=== PATIENT | female | born 1970 | race Hispanic/Latino ===

== ENCOUNTER 2022-01-09 10:00 | Inpatient (IN) | payer BC ==
[~2022-01-09] VITALS: Ht 167.6 cm; Wt 136.4 kg
[2022-01-09 10:31] LABS: BASOPHILS % (AUTO) 1.4 % (0.0-5.0); EOSINOPHILS % (AUTO) 2.4 % (0.0-8.0); LYMPHOCYTES % (AUTO) 33.6 % (21.0-51.0); MEAN CORPUSCULAR HEMOGLOBIN 29.5 pg (27.0-33.0); MEAN CORPUSCULAR HGB CONC 31.2 g/dL (32.0-36.0); MEAN CORPUSCULAR VOLUME 94.5 fL (79-99); NEUTROPHILS % (AUTO) 54.4 % (40.0-77.0); PLATELET COUNT (AUTO) 201 K/uL (130-400); RED BLOOD CELL COUNT(AUTO) 4.34 MIL/uL (4.00-5.50); RED CELL DISTRIBUTION WIDTH 13.2 % (11.0-15.5)
[2022-01-09 10:32] LABS: APPEARANCE,URINE Clear (CLEAR); BILIRUBIN,URINE Negative (NEGATIVE); COLOR,URINE Yellow (YELLOW); GLUCOSE, URINE (UA) Negative (NEGATIVE); KETONES,URINE Negative (NEGATIVE); LEUKOCYTE ESTERASE ,URINE Negative (NEGATIVE); NITRATE,URINE Negative (NEGATIVE); OCCULT BLOOD,URINE Negative (NEGATIVE); PROTEIN,URINE Negative (NEGATIVE)
[2022-01-09 10:37] LABS: CREATININE 0.5 mg/dL (0.5-1.5)
[2022-01-09 10:42] LABS: INR 0.97 (0.85-1.15); PROTHROMBIN TIME 10.6 SEC (9.6-11.6)
[2022-01-09 13:48] VITALS: BP 149/70
[2022-01-09] MEDS ORDERED: GUAI120015 PO (14:23)
[2022-01-09] MEDS ORDERED: TRAM100T40 PO (14:23)
[2022-01-10] VITALS (27 sets, daily range): BP systolic 95–153; BP diastolic 41–85
[2022-01-10] MEDS ORDERED: CEFAZOLIN SODIUM 3 GM in DEXTROSE 5%-WATER 100 ML IVP SCH (09:00)
[2022-01-10] MEDS ORDERED: CEFAZOLIN SODIUM 1 GM VIAL ONE ×2 (09:36→11:30)
[2022-01-10] MEDS ORDERED: LACTATED RINGERS 1000ML 1,000 ML IV ONE (09:36)
[2022-01-10] MEDS ORDERED: ACETAMINOPHEN 500 MG TABLET ONE (11:12)
[2022-01-10] MEDS ORDERED: KETOROLAC 15MG/ML VIAL (15MG/ML) ONE (11:13)
[2022-01-10] MEDS ORDERED: CELECOXIB 200 MG CAP ONE (11:13)
[2022-01-10] MEDS ORDERED: TRANEXAMIC ACID 1000MG/10ML ONE ×2 (11:29→15:11)
[2022-01-10] MEDS ORDERED: ROPIVACAINE 0.5% 5MG/ML 30ML IJ ONE ×2 (12:40→17:03)
[2022-01-10] MEDS ORDERED: LIDOCAINE PF 100MG/5ML (2%) SYRINGE 5ML ONE ×2 (12:40→12:41)
[2022-01-10] MEDS ORDERED: SUCCINYLCHOLINE CHLORIDE 20 MG/ML 10 ML VIAL ONE (12:40)
[2022-01-10] MEDS ORDERED: GLYCOPYRROLATE 1 MG/5 ML SYRINGE ONE (12:40)
[2022-01-10] MEDS ORDERED: DEXAMETHASONE SOD PHOSPHATE 10MG/ML 1ML VIAL ONE (12:40)
[2022-01-10] MEDS ORDERED: PROPOFOL 10 MG/ML 20ML VIAL IV ONE ×2 (12:40→14:00)
[2022-01-10] MEDS ORDERED: ONDANSETRON 4MG INJ ONE (12:40)
[2022-01-10] MEDS ORDERED: FENTANYL CITRATE PF 50 MCG/1 ML 2ML VIAL ONE ×2 (12:40→13:59)
[2022-01-10] MEDS ORDERED: ROCURONIUM 10MG/1ML SYR 10 MG/ML ML ONE ×2 (12:41→13:42)
[2022-01-10] MEDS ORDERED: NEOSTIGMINE 5MG/5ML SYR IV ONE (12:41)
[2022-01-10] MEDS ORDERED: MIDAZOLAM HCL 1 MG/ML 2ML VIAL ONE ×2 (12:41→17:04)
[2022-01-10] MEDS ORDERED: CEFAZOLIN SODIUM 2 GM VIAL IV ONE (13:20)
[2022-01-10] MEDS ORDERED: TRANEXAMIC ACID 1000MG/10ML IV ONE (13:25)
[2022-01-10] MEDS ORDERED: PHENYLEPHRINE HCL 10 MG/ML 1ML VIAL IV ONE (13:34)
[2022-01-10] MEDS ORDERED: FENTANYL CITRATE PF 50 MCG/1 ML 5ML AMP IV ONE (14:25)
[2022-01-10] MEDS ORDERED: POTASSIUM CHLORIDE 10% ELIXIR 20 MEQ/15 ML UDCUP PO PRN (16:00)
[2022-01-10] MEDS ORDERED: POTASSIUM CHLORIDE 20MEQ/100ML 100 ML IV PRN (16:00)
[2022-01-10] MEDS ORDERED: OXYCODONE HCL 5 MG TAB PO PRN ×2 (16:00)
[2022-01-10] MEDS ORDERED: DiphenhydrAMINE HCL 50 MG/ML VIAL IVP PRN (16:00)
[2022-01-10] MEDS ORDERED: LIDOCAINE HCL-MPF 1% 2ML VIAL IV PRN (16:00)
[2022-01-10] MEDS: ACETAMINOPHEN 500 MG TABLET PO SCH ×2 (16:00→20:20)
[2022-01-10] MEDS ORDERED: FERROUS FUMARATE 324 MG TABLET PO PRN (16:00)
[2022-01-10] MEDS ORDERED: TEMAZEPAM 15 MG CAPSULE PO PRN (16:00)
[2022-01-10] MEDS ORDERED: ONDANSETRON 4MG INJ IVP PRN (16:00)
[2022-01-10] MEDS ORDERED: MEPERIDINE-PF 25 MG/ML SYG ONE ×2 (16:55→17:04)
[2022-01-10] MEDS: CEFAZOLIN SODIUM 3 GM in DEXTROSE 5%-WATER 100 ML IVP SCH (18:31)
[2022-01-10] MEDS: 0.9%NACL 1000ML 1,000 ML IV SCH (18:39)
[2022-01-10] MEDS: KETOROLAC 15MG/ML VIAL (15MG/ML) IV PRN (18:55)
[2022-01-10] MEDS: GUAIFENESIN 600 MG TABLET.ER PO SCH (20:19)
[2022-01-10] MEDS: FAMOTIDINE 20MG TAB PO SCH (20:20)
[2022-01-10] MEDS: CELECOXIB 200 MG CAP PO SCH (20:20)
[2022-01-10] MEDS: PREGABALIN 25 MG CAP PO SCH (20:20)
[2022-01-10] MEDS ORDERED: NALOXONE HCL 0.4 MG/1 ML ML IVP PRN (20:30)
[2022-01-10] MEDS ORDERED: HYDROMORPHONE PCA 10 MG/50 ML 50 ML IV PRN (20:30)
[2022-01-11] MEDS: CEFAZOLIN SODIUM 3 GM in DEXTROSE 5%-WATER 100 ML IVP SCH (00:16)
[2022-01-11] MEDS: KETOROLAC 15MG/ML VIAL (15MG/ML) IV PRN ×4 (00:17→20:19)
[2022-01-11] MEDS: 0.9%NACL 1000ML 1,000 ML IV SCH ×2 (01:22→12:00)
[2022-01-11 03:41] VITALS: BP 130/67
[2022-01-11 05:01] LABS: MEAN CORPUSCULAR HEMOGLOBIN 29.6 pg (27.0-33.0); MEAN CORPUSCULAR HGB CONC 31.6 g/dL (32.0-36.0); MEAN CORPUSCULAR VOLUME 93.7 fL (79-99); RED BLOOD CELL COUNT(AUTO) 3.31 MIL/uL (4.00-5.50); RED CELL DISTRIBUTION WIDTH 13.2 % (11.0-15.5)
[2022-01-11 05:10] LABS: CREATININE 0.5 mg/dL (0.5-1.5); POTASSIUM 3.4 mmol/L (3.5-5.1)
[2022-01-11] MEDS: KCL 20 MEQ ERTAB PO PRN ×2 (06:09→09:40)
[2022-01-11 07:53] VITALS: BP 147/91
[2022-01-11] MEDS: TRAMADOL HCL 50 MG TABLET PO PRN (08:12)
[2022-01-11] MEDS: PREGABALIN 25 MG CAP PO SCH ×2 (09:39→19:32)
[2022-01-11] MEDS: CELECOXIB 200 MG CAP PO SCH ×2 (09:39→19:32)
[2022-01-11] MEDS: GUAIFENESIN 600 MG TABLET.ER PO SCH ×2 (09:39→19:32)
[2022-01-11] MEDS: CALCIUM CARB 500MG PO PRN ×2 (09:40→19:36)
[2022-01-11] MEDS: FAMOTIDINE 20MG TAB PO SCH ×2 (09:40→19:32)
[2022-01-11] MEDS: APIXABAN 2.5 MG TABLET PO SCH ×2 (09:40→19:32)
[2022-01-11] MEDS: ACETAMINOPHEN 500 MG TABLET PO SCH ×2 (09:41→16:13)
[2022-01-11] MEDS: POLYETHYLENE GLYCOL 3350 17 GM POWD.PACK PO SCH (09:41)
[2022-01-11 11:37] VITALS: BP 148/86
[2022-01-11 16:47] VITALS: BP 160/77
[2022-01-11 19:49] VITALS: BP 135/76
[2022-01-11 23:10] VITALS: BP 151/76
[2022-01-12] MEDS: ACETAMINOPHEN 500 MG TABLET PO SCH ×2 (00:25→09:29)
[2022-01-12 03:58] VITALS: BP 134/73
[2022-01-12] MEDS: KETOROLAC 15MG/ML VIAL (15MG/ML) IV PRN ×3 (04:55→19:58)
[2022-01-12 08:25] VITALS: BP 159/95
[2022-01-12] MEDS: POLYETHYLENE GLYCOL 3350 17 GM POWD.PACK PO SCH ×2 (09:00→09:27)
[2022-01-12] MEDS: CALCIUM CARB 500MG PO PRN (09:27)
[2022-01-12] MEDS: TRAMADOL HCL 50 MG TABLET PO PRN (09:28)
[2022-01-12] MEDS: APIXABAN 2.5 MG TABLET PO SCH ×2 (09:29→19:55)
[2022-01-12] MEDS: CELECOXIB 200 MG CAP PO SCH ×2 (09:29→19:51)
[2022-01-12] MEDS: PREGABALIN 25 MG CAP PO SCH ×2 (09:29→19:51)
[2022-01-12] MEDS: FAMOTIDINE 20MG TAB PO SCH ×2 (09:29→19:51)
[2022-01-12] MEDS: GUAIFENESIN 600 MG TABLET.ER PO SCH ×2 (09:30→19:54)
[2022-01-12 11:20] VITALS: BP 160/86
[2022-01-12 15:54] VITALS: BP 158/76
[2022-01-12] MEDS ORDERED: APIX2.5T PO (20:11)
[2022-01-12] MEDS ORDERED: TRAM100T40 PO (20:11)
[2022-01-12] MEDS ORDERED: ACET-2079 PO (20:11)
[2022-01-12 20:29] VITALS: BP 127/85
[2022-01-13] MEDS ORDERED: BISACODYL 10 MG SUPP.RECT RC PRN (16:00)
== END 2022-01-12 21:50 | disposition home health service (06) | DRG 470 ==
LOC: EDSTATUS 10:00 → DAHIP 01-10 08:23 → 4AH 01-10 17:57
PROVIDERS: ADMIT Orthopaedic Surgery; ATTEND Orthopaedic Surgery
PROC: 0SRC0J9 Replacement of Right Knee Joint with Synthetic Substitute, Cemented, Open Approach (ICD-10-PCS; principal; 2022-01-10 13:56)
PROC: 3E0T3BZ Introduction of Anesthetic Agent into Peripheral Nerves and Plexi, Percutaneous Approach (ICD-10-PCS; 2022-01-10 13:56)
DX: M17.11 Unilateral primary osteoarthritis, right knee (principal); Z68.42 Body mass index [BMI] 45.0-49.9, adult; D64.9 Anemia, unspecified; Z96.652 Presence of left artificial knee joint; Z90.49 Acquired absence of other specified parts of digestive tract; Z20.822 Contact with and (suspected) exposure to COVID-19; Z88.8 Allergy status to other drugs, medicaments and biological substances; Z98.84 Bariatric surgery status; E66.01 Morbid (severe) obesity due to excess calories
CPT/HCPCS: 36415; 80048; 81003; 84703; 85025; 85027; 85610; 87088; 87635; 87641; 96374; 97039; G0378; J0330; J0690; J1100; J1170; J1885; J2001; J2175; J2250; J2370; J2405; J2704; J2710; J2795; J3010; J3490; J7060; J7120